=== PATIENT | male | born 1960 | race Asian ===

== ENCOUNTER 2018-01-27 18:01 | Emergency (ER) | payer OTHER ==
[~2018-01-27] VITALS: Ht 180.3 cm; Wt 108.9 kg
[~2018-01-27 18:01] MED LIST: ATIVAN2 MG PO; BENZ1TAB43 PO; BRIMONIDINE0.2 % OP; CLONIDINE0.1 MG PO; COSOPT PF OPTH; CYCL10TA35 PO; DIPH50CA30 PO; DIVA500T2 PO; FORTAMET1000 MG PO; GLIP10TA55 PO; GLUCAGON1 M1 IJ; HALO5TAB10 PO; HYDR5TAB9 PO; INSTA-GLUCOSE40 % OR; INSU100P SC; INSUINJP SC; LAMICTAL25 MG PO; LEVEMIR SC; LEVO0.0218 PO; LISI10TA11 PO; LORA2INJ21 INJ; LUMIGAN0.01 % OP; MAGOX 400400 MG PO; MYSOLINE50 MG PO; NAPROSYN500 MG PO; NOVOLOG SC; NOVOLOG100 MG/ML SC; OLAN10TA2 PO; PAXIL30 MG PO; PROVERA10 MG OR; RISP0.25 PO; RISP1TAB PO; SIMV40TA57; SM IBUPROFEN100 MG PO; ZANTAC300 MG PO; ZIPR80CA PO; [UNRECOGNIZED DRUG - OTHER]
[2018-01-27 18:42] LABS: PLATELET COUNT 210 K/uL (142-355)
[2018-01-27 18:48] LABS: POTASSIUM 4.2 mmol/L (3.6-5.2)
[2018-01-27 19:54] VITALS: BP 164/73; TEMP 98.4
[2018-01-27] MEDS ORDERED: INSUINJ20 SC (20:52)
[2018-01-27] MEDS ORDERED: BENZ1TAB43 PO (20:53)
[2018-01-27] MEDS ORDERED: [UNRECOGNIZED DRUG - OTHER] PO (20:53)
[2018-01-27] MEDS ORDERED: DIVALPROEX500 M1 PO (20:56)
[2018-01-27] MEDS ORDERED: GABA300C2 PO (20:57)
[2018-01-27] MEDS ORDERED: JARDIANCE25 MG PO (20:58)
[2018-01-27] MEDS ORDERED: LAMICTAL25 MG PO (20:59)
[2018-01-27] MEDS ORDERED: MULTIVITAMI1 PO (21:02)
[2018-01-27] MEDS ORDERED: PANTOPRAZOLE 40MG TA PO (21:03)
[2018-01-27] MEDS ORDERED: PRIMIDONE50 M1 PO (21:04)
[2018-01-27] MEDS ORDERED: METAMUCIL0.52 GM PO (21:05)
[2018-01-27] MEDS ORDERED: PROVERA10 MG PO (21:06)
[2018-01-27] MEDS ORDERED: ASCO500T18 PO (21:22)
[2018-01-27] MEDS ORDERED: ZINC PO (21:23)
[2018-01-27] MEDS ORDERED: CARTEOLOL 1% OP (21:26)
[2018-01-27] MEDS ORDERED: MUPIROCIN2 % EX (21:27)
[2018-01-27] MEDS ORDERED: SANTYL250 MG/GM TOP (21:28)
[2018-02-10] MEDS ORDERED: LAMO100T PO (11:23)
[2018-02-10] MEDS ORDERED: PRIM50TA4 PO (11:23)
[2018-02-10] MEDS ORDERED: GABA300C2 PO (11:23)
[2018-02-10] MEDS ORDERED: BENZ1TAB43 PO (11:23)
[2018-02-10] MEDS ORDERED: RISP1TAB PO ×2 (11:25)
[2018-02-10] MEDS ORDERED: DIVA500T2 PO (11:25)
[2018-02-10] MEDS ORDERED: MEDR2.5T19 PO (11:25)
[2018-02-10] MEDS ORDERED: ESCI10TA PO (11:25)
== END 2018-01-27 20:12 | disposition other institution (70) ==
LOC: ED 18:01
DX: R45.1 Restlessness and agitation (principal); Z04.6 Encounter for general psychiatric examination, requested by authority
CPT/HCPCS: 36415; 80053; 81000; 85027; 93005; 99285